=== PATIENT | female | born 1995 | race Two or more races ===

== ENCOUNTER → 2024-10-07 | Emergency (ER) | payer OTHER ==
[~2024-10-07] VITALS: Ht 160 cm; Wt 54.4 kg
[2024-10-07 09:39] LABS: URINE APPEARANCE Clear; URINE BILIRRUBIN Negative (NEGATIVE); URINE COLOR Yellow; URINE GLUCOSE Negative (NEGATIVE); URINE KETONE Trace (NEGATIVE); URINE LEUKOCYTE Negative; URINE NITRATE Negative; URINE PROTEIN Negative (NEGATIVE); URINE UROBILINOGEN 0.2 E.U./dl
[2024-10-07 09:39] LABS: HEMATOCRIT 37.9 % (36.0-45.00); MEAN CELL VOLUME 92.3 fL (80.00-100.00); MEAN CORPUSCULAR HEMOGLOBIN 31.6 pg (27.00-32.0); MEAN CORPUSCULAR HGB CONC 34.2 g/dl (32.0-36.0); PLATELET COUNT 226 K/uL (150-450); RED CELL DISTRIBUTION WIDTH 12.6 % (11.5-14.5)
[2024-10-07 09:40] LABS: URINE BACTERIA 13.4 uL (0.0-1933); URINE EPITHELIAL CELLS 4.5 uL (0.0-38.8); URINE RBC 12.8 uL (0.0-20.8); URINE WBC 9.9 uL (0.0-23.2)
[2024-10-07 09:50] LABS: URINE BLOOD TRACE
[2024-10-07 10:23] LABS: CREATININE SERUM 0.77 mg/dL (0.55-1.02); GFR 87.43; POTASSIUM 4.25 mEq/L (3.5-5.1)
== END | disposition home or self-care (01) ==
LOC: ER 05:36
PROVIDERS: General Practice
DX: R30.0 Dysuria (principal)